=== PATIENT | female | born 1980 | race Caucasian/White ===

== ENCOUNTER → 2020-03-23 | Emergency (ER) | payer OTHER, MEDICAID ==
[~2020-03-23] VITALS: Ht 160 cm; Wt 77.1 kg
[~2020-03-23] MED LIST: FLEXERIL PO; IBUPROFEN 600600 M1 PO; KEFLEX500 MG PO; MEDROLDOSEPACK PO; NAPROSYN500 MG PO
[2020-03-23 17:30] VITALS: BP 142/89
[2020-03-23 17:51] LABS: URINE BILIRUBIN NEGATIVE (Negative); URINE BLOOD NEGATIVE (Negative); URINE CLARITY CLEAR; URINE COLOR YELLOW; URINE GLUCOSE-RANDOM NEGATIVE (Negative); URINE KETONES NEGATIVE (Negative); URINE LEUKOCYTES-REFLEX NEGATIVE (Negative); URINE NITRITE-REFLEX NEGATIVE (Negative); URINE PROTEIN NEGATIVE (Negative); URINE UROBILINOGEN 0.2 E.U./dl (0.2-1.0)
[2020-03-23 18:16] LABS: INFLUENZA A ANTIGEN Negative (Negative); INFLUENZA B ANTIGEN Negative (Negative)
== END ==
LOC: M.ERS 17:14
PROVIDERS: Nurse Practitioner Psychiatric/Mental Health
DX: B34.9 Viral infection, unspecified (principal); Z20.828 Contact with and (suspected) exposure to other viral communicable diseases

== ENCOUNTER 2020-08-13 19:44 | Emergency (ER) | payer OTHER, MEDICAID ==
[~2020-08-13] VITALS: Ht 157.5 cm; Wt 74.8 kg
[2020-08-13] MEDS ORDERED: PROAIR HFA8.5 GM INH (21:06)
[2020-08-13] MEDS ORDERED: DOXYCYCLINE 10100 MG PO (21:06)
[2020-08-13] MEDS ORDERED: MEDROLDOSEPACK PO (21:06)
[2020-08-13 21:28] VITALS: BP 125/87
== END 2020-08-13 21:28 | disposition home or self-care (01) ==
LOC: M.ERS 19:44
DX: J98.8 Other specified respiratory disorders (principal); Z20.822 Contact with and (suspected) exposure to COVID-19

== ENCOUNTER 2020-09-19 18:04 | Emergency (ER) | payer OTHER, MEDICAID ==
[~2020-09-19] VITALS: Ht 157.5 cm; Wt 77.1 kg
[~2020-09-19 18:04] MED LIST changes: +DOXYCYCLINE 10100 MG PO; +PROAIR HFA8.5 GM INH
[2020-09-19] MEDS ORDERED: APAP W/CODEINE1 TA2 PO (19:00)
[2020-09-19 19:15] VITALS: BP 145/102
== END 2020-09-19 19:16 | disposition home or self-care (01) ==
LOC: M.ERS 18:04
DX: M25.571 Pain in right ankle and joints of right foot (principal); R22.41 Localized swelling, mass and lump, right lower limb